=== PATIENT | female | born 1975 ===

== ENCOUNTER 2017-03-29 20:21 | Emergency (ER) | payer SELFPAY ==
[2017-03-29 20:31] VITALS: BP 123/78; PULSE 83; RESP 20; TEMP 98.2; O2SAT 100
--- NOTE | 2017-03-29 21:43 | C.PDOC ---
History Of Present Illness Of note, patient speaks macedonian, bilingual interpreter was obtained. Human Resources Project Coordinator #[id number] was used to communicate with the patient. 41 year old female presents to the ED with complaints of left sided neck / shoulder pain that waxes and wanes in intensity yet is always present for the last 8 months. Patient notes pain radiates to the left arm and has been worsening for the last three days exacerbated by certain movements and activities with intermitted numbness to the L hand. She states she has been taking over the counter pain medicine but with no relief x 3 days thus prompting visit. Patient denies receiving medical evaluation for symptoms, any trauma, injury, headache, weakness, chest pain, and SOB. Time Seen by Provider: 03/29/17 20:37 Chief Complaint (Nursing): Upper Extremity Problem/Injury History Per: Patient History/Exam Limitations: no limitations Onset/Duration Of Symptoms: Days (symptoms worsening for three days ), Waxing/ Waning (for 8 months ) Current Symptoms Are (Timing): Still Present Quality: "Pain" Exacerbating Factor(s): Movement, Other (certain activities ) Past Medical History Reviewed: Historical Data, Nursing Documentation, Vital Signs Vital Signs: Last Vital Signs Temp 98.2 F 03/29/17 20:25 Pulse 83 03/29/17 20:25 Resp 20 03/29/17 20:25 BP 123/78 03/29/17 20:25 Pulse Ox 100 03/29/17 22:38 Surgical History: Cholecystectomy Family History: States: No Known Family Hx - Social History Hx Alcohol Use: No Hx Substance Use: No Review Of Systems Constitutional: Negative for: Fever, Chills, Sweats Cardiovascular: Negative for: Chest Pain, Palpitations Respiratory: Negative for: Cough, Shortness of Breath Gastrointestinal: Negative for: Nausea, Vomiting, Abdominal Pain, Diarrhea Musculoskeletal: Positive for: Neck Pain (left sided neck pain), Shoulder Pain ( left shoulder pain) Neurological: Negative for: Headache Physical Exam - Physical Exam Appears: Non-toxic, In Acute Distress (mild acute distress ) Skin: Warm, Dry Oral Mucosa: Moist Neck: Normal ROM, No Midline Cervical Tenderness, No Paracervical Tenderness, Supple Chest: Symmetrical, No Deformity Cardiovascular: Rhythm Regular Respiratory: No Rales, No Rhonchi, No Stridor, No Wheezing Gastrointestinal/Abdominal: Soft, No Tenderness, No Distention, No Guarding, No Rebound Extremity: Normal ROM, Tenderness (tenderness to top of left shoulder ), No Deformity, No Swelling Extremity: Bilateral: Atraumatic, Normal ROM Pulses: Left Radial: Normal, Right Radial: Normal Neurological/Psych: Oriented x3, Normal Speech, Normal Cranial Nerves, Normal Motor, Normal Sensation ED Course And Treatment O2 Sat by Pulse Oximetry: 100 (room air ) Medical Decision Making Medical Decision Makin yo F presents with 8 month h/o atraumatic L shoulder pain. Based on history and exam, symptoms area likely due to a radiculopathy. Plan: - XR C spine - XR L shoulder - Toradol IM XR C spine: no fracture, as read by PA. XR L shoulder: no fracture, as read by PA. XR results d/w the patient in great detail. Patient notified of potential cause of her symptoms. Advised to f/u with the clinic in 2 days without fail, advised that she may need outpatient PT and MRI. Take medications as prescribed. Return to the ER at any time for any new or worsening symptoms. Disposition - Disposition Referrals: [facility] at [facility] [Outside] Disposition: HOME/ ROUTINE Disposition Time: 22:35 Condition: STABLE Prescriptions: Cyclobenzaprine [Cyclobenzaprine HCl] 10 mg PO TID PRN #30 tab PRN Reason: Muscle Spasm Meloxicam [Mobic] 15 mg PO DAILY PRN #30 tab PRN Reason: Pain, Moderate (4-7) predniSONE [predniSONE Tab] 40 mg PO DAILY #10 tab Instructions: Cervical Radiculopathy (ED), Shoulder Pain (ED) Forms: Work Excuse Print Language: HUNGARIAN - Clinical Impression Clinical Impression: Shoulder pain, left, Cervical radiculopathy - PA / ARCHITECTURAL TECHNICIAN / Resident Statement MD/DO has reviewed & agrees with the documentation as recorded. - Scribe Statement The provider has reviewed the documentation as recorded by the Nilsibleny Cherry All medical record entries made by the Dickson were at my direction and personally dictated by me. I have reviewed the chart and agree that the record accurately reflects my personal performance of the history, physical exam, medical decision making, and the department course for this patient. I have also personally directed, reviewed, and agree with the discharge instructions and disposition.
--- NOTE | 2017-03-30 10:49 | RAD ---
PROCEDURE: Radiographs of the Left Shoulder HISTORY: Pain COMPARISON: No prior. FINDINGS: BONES: Bone alignment and mineralization are normal. No acute fracture or bone destruction. JOINTS: Normal. Glenohumeral and acromioclavicular joints preserved. No osteoarthritis. SOFT TISSUES: Normal. OTHER FINDINGS: None. IMPRESSION: Normal examination.
--- NOTE | 2017-03-30 10:56 | RAD ---
PROCEDURE: Cervical Spine Radiographs. HISTORY: Pain. COMPARISON: None. FINDINGS: BONES: Bone alignment and mineralization are normal. There is normal cervical lordosis. There is no acute fracture or spondylolisthesis. The craniocervical junction is normal. The atlantoaxial joint is normal. DISC SPACES: Normal. SOFT TISSUES: Normal. No prevertebral soft tissue swelling. OTHER FINDINGS: None. IMPRESSION: Normal examination.
== END 2017-03-29 22:59 | disposition home or self-care (01) ==
LOC: C.ER 20:21
DX: M54.12 Radiculopathy, cervical region (principal); M25.512 Pain in left shoulder
CPT/HCPCS: 72040; 73030; 96372; 99284; J1885

== ENCOUNTER 2017-06-05 18:54 | Emergency (ER) | payer OTHER ==
[2017-06-05 19:02] VITALS: PULSE 68; TEMP 98.1; O2SAT 100
--- NOTE | 2017-06-05 20:28 | C.PDOC ---
History Of Present Illness 41 year old female who presents to the ER with a complaint of a burning sensation from her throat to epigastric region, associated with some nausea, headache, and subjective fever. Patient states she has been taking frequent doses of motrin for neck and back pain lately. Denies diarrhea, vomiting, recent sick contact/travel. Time Seen by Provider: 06/05/17 19:31 Chief Complaint (Nursing): ENT Problem History Per: Patient History/Exam Limitations: None Onset/Duration Of Symptoms: Days Current Symptoms Are (Timing): Still Present Symptoms Have Been: Continuous Anticoagulant/Antiplatlet Use?: No Past Medical History Reviewed: Historical Data, Nursing Documentation, Vital Signs Vital Signs: Last Vital Signs Temp 98.1 F 06/05/17 18:57 Pulse 68 06/05/17 21:44 Resp 16 06/05/17 21:44 BP 106/67 06/05/17 21:44 Pulse Ox 100 06/05/17 21:44 - Medical History PMH: No Chronic Diseases Surgical History: Cholecystectomy Family History: States: Unknown Family Hx - Social History Hx Alcohol Use: No Hx Substance Use: No - Immunization History Hx Tetanus Toxoid Vaccination: No Hx Influenza Vaccination: No Hx Pneumococcal Vaccination: No Review Of Systems Constitutional: Positive for: Fever (Subjective) ENT: Positive for: Throat Pain Gastrointestinal: Positive for: Nausea. Negative for: Vomiting, Diarrhea Neurological: Positive for: Headache. Negative for: Dizziness Physical Exam - Physical Exam Appears: Non-toxic Skin: Normal Color, Warm, Dry Head: Atraumatic, Normacephalic Oral Mucosa: Moist Throat: Normal, No Erythema, No Exudate Neck: Normal, Supple Lymphatic: Other (Small 2 submandibular nodes) Chest: Symmetrical, No Tenderness Cardiovascular: Rhythm Regular, No Murmur Respiratory: Normal Breath Sounds, No Rales, No Rhonchi, No Wheezing Gastrointestinal/Abdominal: Soft, Tenderness (Epigastric), No Distention, No Guarding, No Rebound Neurological/Psych: Oriented x3, Normal Speech, Normal Cognition ED Course And Treatment O2 Sat by Pulse Oximetry: 100 Medical Decision Making Medical Decision Making: Plan: Urinalysis Urine Culture Rapid strep Pepcid 936 pm pt feeling better. advised to stop ibuprofen, f/u clinic Disposition Counseled Patient/Family Regarding: Diagnosis, Need For Followup, Rx Given - Disposition Referrals: [facility] at [facility] [Outside] Disposition: HOME/ ROUTINE Disposition Time: 21:38 Condition: IMPROVED Additional Instructions: Arrtez de prendre de l'ibuprofne pour la douleur; Recommander Tylenol la place. Prenez Pepcid comme prescrit. Suivi de la clinique mdicale; Appelez demain pour un rendez-vous. Retourner ER pour les symptmes d'aggravation. Prescriptions: Famotidine [Pepcid] 20 mg PO DAILY #14 tab Forms: 500px (Vietnamese) Print Language: FINNISH - Clinical Impression Clinical Impression: Gastritis - Scribe Statement The provider has reviewed the documentation as recorded by the Scribe Rory Barfield All medical record entries made by the Scribe were at my direction and personally dictated by me. I have reviewed the chart and agree that the record accurately reflects my personal performance of the history, physical exam, medical decision making, and the department course for this patient. I have also personally directed, reviewed, and agree with the discharge instructions and disposition.
[2017-06-05 20:44] LABS: RBC URINE 6 /hpf (0-3); URINE BACTERIA RARE (<OCC); URINE BILIRUBIN NEGATIVE (NEGATIVE); URINE COLOR Yellow (YELLOW); URINE GLUCOSE (UA) NORMAL (Normal); URINE KETONE NEGATIVE (NEGATIVE); URINE LEUKOCYTE ESTERASE NEG Leu/uL (Negative); URINE PROTEIN NEGATIVE (NEGATIVE); URINE UROBILINOGEN NORMAL mg/dL (0.2-1.0); WBC URINE 2 /hpf (0-5)
[2017-06-05 20:51] LABS: URINE BLOOD TRACE (NEGATIVE)
[2017-06-05] MEDS ORDERED: Absorbable Gelatin Sponge Size 12-7 ONE (21:06)
[2017-06-05 21:45] VITALS: BP 106/67; RESP 16
== END 2017-06-05 21:44 | disposition home or self-care (01) ==
LOC: C.ER 18:54
DX: K29.70 Gastritis, unspecified, without bleeding (principal)